=== PATIENT | female | born 1990 | race Caucasian/White ===

== ENCOUNTER 2020-11-11 08:45 | Outpatient (RCR) | payer OTHER, SELFPAY ==
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
[2020-10-27 14:58] VITALS: BMI 22.1
--- NOTE | 2020-10-27 15:01 | PC.NURSE ---
case opened in treatment team
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
--- NOTE | 2020-11-01 12:54 | HO.PHPPROGNO ---
Subjective Subjective Date of Service: 11/01/20 Reason For Visit: Depression, PTSD, Anxiety, ADHD Interim History: The patient reported that she is doing fine, no new symptoms, no evidence of side effects. She is participating in the groups and so far, she feels better. Medication Compliance: Yes Side effects from medications: No Attending Groups: Yes Review of Systems Acute medical concerns: No Medical Review of Systems: unchanged Mental Status Exam Mental Status Exam Patient Appearance: Well Grooomed Patient Orientation: Person, Place, Time and Situation Level of Consciousness: Awake Patient Behavior: Appropriate Mood Description: Calm Affect Description: Calm Patient Cognition Impaired: No Ability to Follow Directions: Good Speech Pattern: Clear Memory Description: Intact Hallucinations: None Delusions: Not Present Thought Process: Goal Oriented Thought Content: positive for Intact Judgement: Fair Diagnostics Vital Signs (24Hr): Body Mass Index 22.1 Assessment & Plan Assessment & Plan (1) Mood disorder: Status: Acute Code(s): F39 - Unspecified mood [affective] disorder Assessment and Plan: The patient is a young adult female with mood disorder, with the past history of substance abuse, referred for exacerbation of depression. Plan: Keep same treatment Certification I certify that partial hospital treatment is medically necessary due to the symptoms and problems resulting from the patient's mental illness and the failure to treat the patient at the partial hospital level of care would likely result in the patient requiring inpatient psychiatric care which could not be prevented at a less intensive level of care. Greater than 50% of the session was spent on counseling and/or coordination of care Discharge Plan Discharge Attending provider: Rashaun Nichole Medications: No Action clonidine HCl 0.1 mg Tablet 0.3 mg PO BEDTIME RF: 0 clonidine HCl 0.1 mg Tablet 0.1 mg PO DAILY PRN (Reason: Anxiety) RF: 0 venlafaxine [Effexor XR] 75 mg Capsule,Extended Release 24hr 75 mg PO DAILY RF: 0 gabapentin 600 mg Tablet 600 mg PO BEDTIME RF: 0 dextroamphetamine-amphetamine [Adderall] 10 mg Tablet 10 mg PO DAILY@1400 RF: 0 venlafaxine [Effexor XR] 150 mg Capsule,Extended Release 24hr 150 mg PO DAILY RF: 0 quetiapine [Seroquel] 100 mg Tablet 100 mg PO DAILY PRN (Reason: Anxiety) RF: 0 dextroamphetamine-amphetamine [Adderall XR] 20 mg Capsule,Extended Release 24hr 20 mg PO DAILY RF: 0 gabapentin 300 mg Capsule 300 mg PO BID RF: 0 Telehealth Telehealth Location of provider rendering services: practice address Location of patient: address on file Patient Identification confirmed using: Name, : Yes Telehealth method: video Patient verbally consented to treatment: Yes Patient verbally consented to billing insurance company: Yes Patient informed of any privacy concerns related to visit: No Time spent with patient (mins): 15
--- NOTE | 2020-11-07 13:48 | HO.PHPPROGNO ---
Subjective Subjective Date of Service: 11/07/20 Reason For Visit: Depression, PTSD, Anxiety, ADHD Interim History: The patient reported that she is participating on [facility] and she is doing well. No side effects, mood is stable. Medication Compliance: Yes Side effects from medications: No Attending Groups: Yes Mental Status Exam Mental Status Exam Patient Appearance: Well Grooomed Patient Orientation: Person, Place, Time and Situation Level of Consciousness: Awake Patient Behavior: Appropriate Mood Description: Appropriate Affect Description: Withdrawn Patient Cognition Impaired: No Ability to Follow Directions: Good Speech Pattern: Clear Memory Description: Intact Hallucinations: None Delusions: Not Present Thought Process: Goal Oriented Thought Content: positive for Intact Judgement: Fair Diagnostics Vital Signs (24Hr): Body Mass Index 22.1 Assessment & Plan Assessment & Plan (1) Mood disorder: Status: Acute Code(s): F39 - Unspecified mood [affective] disorder Assessment and Plan: Young adult female with mood disorder and past history of substance abuse, referred by her provider for exacerbation of depression. So far, euthymic and content with the current regiment. Plan: Keep same treatment Certification I certify that partial hospital treatment is medically necessary due to the symptoms and problems resulting from the patient's mental illness and the failure to treat the patient at the partial hospital level of care would likely result in the patient requiring inpatient psychiatric care which could not be prevented at a less intensive level of care. Greater than 50% of the session was spent on counseling and/or coordination of care Discharge Plan Discharge Attending provider: Rashuan Nichole Medications: No Action clonidine HCl 0.1 mg Tablet 0.3 mg PO BEDTIME RF: 0 clonidine HCl 0.1 mg Tablet 0.1 mg PO DAILY PRN (Reason: Anxiety) RF: 0 venlafaxine [Effexor XR] 75 mg Capsule,Extended Release 24hr 75 mg PO DAILY RF: 0 gabapentin 600 mg Tablet 600 mg PO BEDTIME RF: 0 dextroamphetamine-amphetamine [Adderall] 10 mg Tablet 10 mg PO DAILY@1400 RF: 0 venlafaxine [Effexor XR] 150 mg Capsule,Extended Release 24hr 150 mg PO DAILY RF: 0 quetiapine [Seroquel] 100 mg Tablet 100 mg PO DAILY PRN (Reason: Anxiety) RF: 0 dextroamphetamine-amphetamine [Adderall XR] 20 mg Capsule,Extended Release 24hr 20 mg PO DAILY RF: 0 gabapentin 300 mg Capsule 300 mg PO BID RF: 0 Telehealth Telehealth Location of provider rendering services: practice address Location of patient: address on file Patient Identification confirmed using: Name, : Yes Telehealth method: video Patient verbally consented to treatment: Yes Patient verbally consented to billing insurance company: Yes Patient informed of any privacy concerns related to visit: No
--- NOTE | 2020-11-11 14:13 | PC.NURSE ---
Patient is discharging from the program today. Reviewed patient medications with patient. Patient reports she is taking medications as prescribed. Medication education provided.
== END 2020-11-14 09:02 | disposition home or self-care (01) ==
LOC: HO.PHPA 08:45
PROVIDERS: Visit Provider Psychiatry & Neurology Psychiatry
DX: F32.9 Major depressive disorder, single episode, unspecified (principal); F43.10 Post-traumatic stress disorder, unspecified; F41.9 Anxiety disorder, unspecified; F90.9 Attention-deficit hyperactivity disorder, unspecified type; Z79.899 Other long term (current) drug therapy
CPT/HCPCS: 90791; 90853